=== PATIENT | male | born 1965 | race Caucasian/White ===

== ENCOUNTER → 2023-05-28 07:35 | Outpatient (CLI) | payer MEDICARE, SELFPAY ==
[2023-05-28 07:43] LABS: Microscopic, Urine URINE MICROSCOPIC (MICROSCOPIC)
[2023-05-28 07:56] LABS: Basophils # 0.1 K/mm3 (0-0.2); Basophils % 0.9 % (0.1-2.0); Eosinophils # 0.3 K/mm3 (0.0-0.4); Eosinophils % 3.2 % (0.1-12.0); Hematocrit 44.8 % (42.0-52.0); Lymphocytes % 33.1 % (10-50); Mean Corpuscular HGB Conc 33.5 g/dL (31.8-35.4); Mean Corpuscular Hemoglobin 32.1 pg (27.0-31.2); Mean Platelet Volume 10.2 fl (7.4-10.4); Monocytes # 0.6 K/mm3 (0.1-1.0); Neutrophils # 5.1 K/mm3 (1.8-7.8); Neutrophils % 55.8 % (37.0-80.0); Platelet Count 220 K/mm3 (142-424); Red Blood Count 4.66 M/mm3 (4.60-6.20); Red Cell Distribution Width 13.6 % (11.5-17.5); White Blood Count 9.1 K/mm3 (4.8-10.8)
[2023-05-28 07:57] LABS: Appearance,Urine CLEAR (Clear); Bilirubin,Urine Negative (Negative); Blood, Urine Negative (Negative); Color,Urine YELLOW (Yellow); Glucose,Urine (UA) Negative (Negative); Ketones,Urine Negative (Negative); Leukocyte Esterase,Urine Negative (Negative); Nitrate,Urine Negative (Negative); PH,Urine 6.5 (5.0-8.5); Protein,Urine Negative (Negative); Urobilinogen,Urine 0.2 EU/dl (0.2)
[2023-05-28 08:29] LABS: Squamous Epithelial Cell,Urine Occasional #/hpf (0-5); WBC,Urine Occasional #/hpf (0-3)
[2023-05-28 08:42] LABS: Chloride 104 mmol/L (98-107); Potassium 3.5 mmoL/L (3.5-5.1); Sodium 142 mmol/L (136-145)
[2023-05-28 08:44] LABS: Amylase 66 U/L (30-110)
[2023-05-28 08:45] LABS: Alanine Aminotransferase 22 U/L (12-78); Albumin Level 3.7 g/dl (3.5-5.0); Albumin/Globulin Ratio 1.8 (1.1-1.8); Alkaline Phosphatase 75 U/L (38-126); Anion Gap 10.5 mEq/L (5-15); Aspartate Amino Transferase 19 U/L (17-59); Bilirubin,Total 0.5 mg/dl (0.2-1.3); Blood Urea Nitrogen 25 mg/dl (9-20); Calcium 9.5 mg/dl (8.4-10.2); Carbon Dioxide 31 mmol/L (22.0-30.0); Estimated Glomerular Filt Rate 48 ml/min (>60); GFR (African American) 58 ML/MIN (>60); Globulin 2.1 g/dL (1.3-3.2); Glucose 95 mg/dl (74-100); HDL Cholesterol 50 mg/dl (40-60); Lipase 53 U/L (23-300); Total Protein,Serum 5.8 g/dl (6.3-8.2)
[2023-05-28 08:46] LABS: Cholesterol 152 mg/dl (140-200); Triglycerides 81 mg/dl (30-150); VLDL Cholesterol 16 mg/dL (0-40)
[2023-05-28 08:55] LABS: Creatinine,Urine Random 154 mg/dL (Not Estab.); Microalbumin/Creatinine Ratio 6.3
[2023-05-28 08:57] LABS: Direct LDL Cholesterol 82.13 mg/dL (100-129)
[2023-05-28 09:17] LABS: Thyroid Stimulating Hormone 1.09 uIU/mL (0.465-4.68)
[2023-05-28 12:26] LABS: Prostate Specific Ag Screen 0.7 ng/ml (0.0-4.0)
[2023-05-28 12:45] LABS: Vitamin B12 268 pg/mL (239-931)
[2023-05-29 10:12] LABS: Testosterone,Total 677 ng/dL (264-916)
== END ==
PROVIDERS: PCP Nurse Practitioner Family; Visit Provider Nurse Practitioner Family
DX: I10 Essential (primary) hypertension (principal); F10.10 Alcohol abuse, uncomplicated; Z12.5 Encounter for screening for malignant neoplasm of prostate; Z13.220 Encounter for screening for lipoid disorders; F19.11 Other psychoactive substance abuse, in remission; N45.1 Epididymitis; Z79.899 Other long term (current) drug therapy
CPT/HCPCS: 36415; 80053; 80061; 81001; 82043; 82150; 82570; 82607; 83690; 84155; 84403; 84439; 84443; 85025; 87086; G0103

== ENCOUNTER → 2023-05-31 07:45 | Outpatient (CLI) | payer MEDICARE, SELFPAY ==
--- NOTE | 2023-05-31 07:48 | CA_ITS ---
FINAL REPORT CLINICAL HISTORY: HTN,SMOKER COMPARISON: None FINDINGS: Aorta velocity: 87.5 cm/sec Right kidney: 10.2 cm. No evidence of hydronephrosis or mass. Right intrarenal RI: 0.8 Right renal artery velocity: 163 cm/sec. Right RAR (Renal artery-Aortic Ratio): 1.86 Left Kidney: 9.3 cm. No evidence of hydronephrosis or mass. Left intrarenal RI: 0.7 Left renal artery velocity: 159 cm/sec. Left RAR (Renal Artery-Aortic Ratio): 1.8 IMPRESSION: No evidence of significant renal artery stenosis. CT angiogram or postcontrast MR angiogram would be more sensitive for evaluation of possible renal artery stenosis. Reviewed, Interpreted and Dictated by Manuel Wilson MD Transcribed by Faye Vargas Authenticated and [facility]
--- NOTE | 2023-05-31 08:15 | US_ITS ---
FINAL REPORT TECHNIQUE: Ultrasound images of the kidneys and bladder were obtained. CLINICAL HISTORY: hypertension COMPARISON: None FINDINGS: The right kidney measures 9.8 cm in length. It is normal in echogenicity. There is no hydronephrosis. The left kidney measures 9.3 cm in length. It is normal in echogenicity. There is no hydronephrosis. There is a small 7 mm cyst projecting from the left mid kidney. IMPRESSION: No hydronephrosis. Reviewed, Interpreted and Dictated by Manuel Wilson MD Transcribed by Faye Vargas Authenticated and [facility]
== END ==
PROVIDERS: PCP Nurse Practitioner Family; Visit Provider Nurse Practitioner Family
DX: I10 Essential (primary) hypertension (principal)
CPT/HCPCS: 76770; 93976

== ENCOUNTER 2024-02-24 11:29 | Outpatient (CLI) | payer MEDICARE, SELFPAY ==
[2024-02-24 11:10] LABS: Microscopic, Urine URINE MICROSCOPIC (MICROSCOPIC)
[2024-02-24 11:22] LABS: Basophils # 0.1 K/mm3 (0-0.2); Basophils % 1.3 % (0.1-2.0); Eosinophils # 0.1 K/mm3 (0.0-0.4); Eosinophils % 1.7 % (0.1-12.0); Hematocrit 48.8 % (42.0-52.0); Hemoglobin 16.1 g/dL (14.1-18.0); Lymphocytes # 2.1 K/mm3 (0.7-4.5); Lymphocytes % 28.6 % (10-50); Mean Corpuscular Hemoglobin 34.5 pg (27.0-31.2); Mean Corpuscular Volume 104.5 fl (80-94); Monocytes # 0.4 K/mm3 (0.1-1.0); Monocytes % 5.7 % (1.7-9.3); Neutrophils # 4.6 K/mm3 (1.8-7.8); Neutrophils % 62.6 % (37.0-80.0); Platelet Count 179 K/mm3 (142-424); Red Blood Count 4.67 M/mm3 (4.60-6.20); Red Cell Distribution Width 14.5 % (11.5-17.5); White Blood Count 7.3 K/mm3 (4.8-10.8)
[2024-02-24 11:35] LABS: Appearance,Urine CLEAR (Clear); Bilirubin,Urine Negative (Negative); Blood, Urine Negative (Negative); Color,Urine YELLOW (Yellow); Glucose,Urine (UA) Negative (Negative); Ketones,Urine Negative (Negative); Leukocyte Esterase,Urine Negative (Negative); Nitrate,Urine Negative (Negative); Protein,Urine Negative (Negative); Urobilinogen,Urine 0.2 EU/dl (0.2)
[2024-02-24 11:46] LABS: Alanine Aminotransferase 20 U/L (12-78); Albumin Level 4.7 g/dl (3.5-5.0); Albumin/Globulin Ratio 1.9 (1.1-1.8); Alkaline Phosphatase 91 U/L (38-126); Anion Gap 13.9 mEq/L (5-15); Aspartate Amino Transferase 27 U/L (17-59); Bilirubin,Total 0.7 mg/dl (0.2-1.3); Blood Urea Nitrogen 15 mg/dl (9-20); Carbon Dioxide 30 mmol/L (22.0-30.0); Chloride 103 mmol/L (98-107); Chol/HDL Ratio 3.9 (1-3.5); Cholesterol 220 mg/dl (140-200); Estimated Glomerular Filt Rate 48 ml/min (>60); GFR (African American) 58 ML/MIN (>60); Globulin 2.5 g/dL (1.3-3.2); Glucose 102 mg/dl (74-100); HDL Cholesterol 56 mg/dl (40-60); Potassium 3.9 mmoL/L (3.5-5.1); Sodium 143 mmol/L (136-145); Total Protein,Serum 7.2 g/dl (6.3-8.2); Triglycerides 114 mg/dl (30-150); VLDL Cholesterol 23 mg/dL (0-40)
[2024-02-24 11:57] LABS: Direct LDL Cholesterol 134.64 mg/dL (100-129)
[2024-02-24 12:02] LABS: 25-OH Vitamin D, Total 29.5 ng/mL (30-100)
[2024-02-24 12:03] LABS: Free T4 (Free Thyroxine) 0.95 ng/dl (0.78-2.19)
[2024-02-24 12:05] LABS: Hemoglobin A1C 5.1 % (4.0-6.0)
[2024-02-24 12:17] LABS: Thyroid Stimulating Hormone 0.84 uIU/mL (0.465-4.68)
[2024-02-24 12:36] LABS: Vitamin B12 327 pg/mL (239-931)
[2024-02-24 13:16] LABS: Bacteria,Urine Trace /lpf; RBC,Urine Occasional #/hpf (0-3); Squamous Epithelial Cell,Urine Occasional #/hpf (0-5); WBC,Urine Occasional #/hpf (0-3)
[2024-02-29 14:15] LABS: Vitamin B6 3.1 ug/L (3.4-65.2)
== END 2024-02-24 23:59 | disposition home or self-care (01) ==
LOC: LAB.DROPOF 11:29
PROVIDERS: PCP Nurse Practitioner Family; Visit Provider Nurse Practitioner Family
DX: E55.9 Vitamin D deficiency, unspecified (principal); R53.83 Other fatigue; R73.09 Other abnormal glucose; I10 Essential (primary) hypertension; R39.9 Unspecified symptoms and signs involving the genitourinary system; F10.10 Alcohol abuse, uncomplicated; E78.00 Pure hypercholesterolemia, unspecified
CPT/HCPCS: 80053; 80061; 81001; 82306; 82607; 83036; 84207; 84425; 84439; 84443; 85025; 87086

== ENCOUNTER 2025-02-22 08:52 | Outpatient (CLI) | payer MEDICARE, SELFPAY ==
[2025-02-22 14:08] LABS: Microscopic, Urine URINE MICROSCOPIC (MICROSCOPIC)
[2025-02-22 14:47] LABS: Basophils # 0.1 K/mm3 (0-0.2); Basophils % 0.8 % (0.1-2.0); Eosinophils # 0.2 Kmm3 (0.0-0.4); Eosinophils % 2.9 % (0.1-12.0); Hematocrit 51.1 % (42.0-52.0); Immature Granulocytes # 0.01 10^3uL; Immature Granulocytes % 0.2 %; Lymphocytes # 2.1 K/mm3 (0.7-4.5); Lymphocytes % 31.5 % (10-50); Mean Corpuscular HGB Conc 35.2 g/dL (31.8-35.4); Mean Corpuscular Volume 96.6 fl (80-94); Mean Platelet Volume 13.3 fl (7.4-10.4); Monocytes # 0.6 K/mm3 (0.1-1.0); Monocytes % 8.4 % (1.7-9.3); Neutrophils # 3.7 K/mm3 (1.8-7.8); Neutrophils % 56.2 % (37.0-80.0); Nucleated Red Blood Cells # 0 10^3/uL; Nucleated Red Blood Cells % 0 %; Platelet Count 150 K/mm3 (142-424); Red Blood Count 5.29 M/mm3 (4.60-6.20); Red Cell Distribution Width 12.6 % (11.5-17.5); Red Cell Distribution Width-SD 45.3 fL; White Blood Count 6.5 K/mm3 (4.8-10.8)
[2025-02-22 15:02] LABS: Appearance,Urine CLEAR (Clear); Bilirubin,Urine Negative (Negative); Blood, Urine Negative (Negative); Color,Urine YELLOW (Yellow); Glucose,Urine (UA) Negative (Negative); Ketones,Urine Negative (Negative); Leukocyte Esterase,Urine Negative (Negative); Nitrate,Urine Negative (Negative); PH,Urine 6.5 (5.0-8.5); Protein,Urine Negative (Negative); Urobilinogen,Urine 0.2 EU/dl (0.2)
[2025-02-22 15:20] LABS: Bacteria,Urine Trace /lpf; Squamous Epithelial Cell,Urine Occasional #/hpf (0-5); WBC,Urine Occasional #/hpf (0-3)
[2025-02-22 15:22] LABS: Alanine Aminotransferase 18 U/L (12-78); Albumin Level 4.9 g/dl (3.5-5.0); Albumin/Globulin Ratio 2.3 (1.1-1.8); Alkaline Phosphatase 84 U/L (38-126); Anion Gap 12.7 mEq/L (5-15); Aspartate Amino Transferase 21 U/L (17-59); Bilirubin,Total 0.7 mg/dl (0.2-1.3); Blood Urea Nitrogen 26 mg/dl (9-20); Calcium 9.5 mg/dl (8.4-10.2); Carbon Dioxide 29 mmol/L (22.0-30.0); Chloride 101 mmol/L (98-107); Chol/HDL Ratio 5.7 (1-3.5); Cholesterol 183 mg/dl (140-200); Estimated Glomerular Filt Rate 41 ml/min (>60); GFR (African American) 50 ML/MIN (>60); Globulin 2.1 g/dL (1.3-3.2); Glucose 73 mg/dl (74-100); HDL Cholesterol 32 mg/dl (40-60); Potassium 4.7 mmoL/L (3.5-5.1); Sodium 138 mmol/L (136-145); Triglycerides 141 mg/dl (30-150); VLDL Cholesterol 28 mg/dL (0-40)
[2025-02-22 15:34] LABS: Direct LDL Cholesterol 125.06 mg/dL (100-129)
[2025-02-22 15:42] LABS: 25-OH Vitamin D, Total 35.8 ng/mL (30-100)
[2025-02-22 15:53] LABS: Prostate Specific Ag Screen 0.7 ng/ml (0.0-4.0); Thyroid Stimulating Hormone 1.04 uIU/mL (0.465-4.68)
[2025-02-22 16:04] LABS: HIV Combo NEGATIVE (Negative)
[2025-02-22 16:12] LABS: Vitamin B12 499 pg/mL (239-931)
[2025-02-22 16:13] LABS: Hepatitis C Ab Qual. W/ RFX NEGATIVE (Negative)
== END 2025-02-22 23:59 | disposition home or self-care (01) ==
LOC: LAB.DROPOF 02-23 10:59
PROVIDERS: PCP Nurse Practitioner Family; Visit Provider Nurse Practitioner Family
DX: Z12.5 Encounter for screening for malignant neoplasm of prostate (principal); Z11.4 Encounter for screening for human immunodeficiency virus [HIV]; Z11.59 Encounter for screening for other viral diseases; Z13.220 Encounter for screening for lipoid disorders; E11.9 Type 2 diabetes mellitus without complications; I10 Essential (primary) hypertension; R53.83 Other fatigue; R41.3 Other amnesia; G47.33 Obstructive sleep apnea (adult) (pediatric); F10.10 Alcohol abuse, uncomplicated; Z79.899 Other long term (current) drug therapy; Z72.0 Tobacco use
CPT/HCPCS: 80053; 80061; 81001; 82306; 82607; 83036; 84156; 84439; 84443; 85025; 86803; 87086; 87389; G0103

== ENCOUNTER 2025-03-21 08:44 | Outpatient (RCR) | payer MEDICARE, SELFPAY ==
--- NOTE | 2025-03-21 09:59 | HMH.PTOPEV ---
PT Outpatient Evaluation Rehab PT Outpatient Evaluation Start: 03/21/25 08:50 Freq: Status: Active Protocol: Document 03/21/25 08:50 STEFANO (Rec: 03/21/25 09:58 JORDONMISHEL [id number]) E-signed By Shon Graf, PT Outpatient Therapy Subjective History Subjective History Pt is a 59 yom who is referred to [facility] outpatient PT with complaints of chronic low back pain with radiating symptoms down the L LE. Pt reports that he has dealt with episodic low back pain for over a decade. He reports that in the past his back will go out for a week or so at a time. Pt reports that he has had 4 prior back surgeries over 10 years ago, with the most recent one being a lumbar fusion. Pt reports that in the past year, his episodes have become more frequent and are constantly causing numbness and tingling into his L leg down to his ankle. Reports that his symptoms are worsened when in one position for longer periods. Reports that when his symptoms are flared up, he is unable to stand up straight. PMH: Htn, Alcoholism Occupation: Part-time [employer] store Chief Complaint Pain,Paresthesia,Weakness Symptom Type Ache,Numbness,Tingling Symptoms Relieved By Ice,OTC Meds Symptoms Aggravated Prone,Sitting,Standing,Physical Activity,Twisting, By Walking Prior Functional None Limitations Current Functional Lifting,Housework,Dressing,Standing,Sitting,Squatting, Limitations Recreation Activity,Walking,Stairs Symptom Description Constant but Variable,Activity Dependent Level of pain today 4 (0-10) Pain scale - at its 2 best (0-10) Pain scale - at its 9 worst (0-10) Lumbopelvic Eval Posture Thoracic Spine Neutral Posture Standing Position Lumbar Spine Posture Flexed Standing Position Assistive device Assistive Devices None / NA Palapation tenderness bilateral lumbar spinal Yes: L3-L4 TTP 3/4 tenderness paraspinal Yes: L3-L4 TTP 3/4 tenderness Accessory Movement L-spine Vertebrae Central P/A Jamieson,Left P/A [place]on Accessory Movements that Elicit Symptoms L3 left L4 left Range of Motion Lumbar Spine Active 75% Flexion Range of Motion (degrees) Lumbar Spine Active 0 Extension Range of Motion (degrees) Left Lumbar Spine 25% Lateral Flexion Active Range of Motion (degrees) Right Lumbar Spine 25% Lateral Flexion Active Range of Motion (degrees) Lumbar Spine ROM Soft Tissue Tightness,Pain Limitations Manual Muscle Test Left Knee Extension 3+ Fair+ Strength Grade Knee Flexion 4+ Good+ Strength Grade Hip Flexion Strength 4 Good Grade Hip Abduction 2 Poor Strength Grade Hip Adduction 4+ Good+ Strength Grade Hip Extension 4 Good Strength Grade Extensor Hallucis 5 Normal Longus Strength Grade Ankle Dorsiflexion 5 Normal Strength Grade DTR Rt Patellar 2+ Lt Patellar 2+ Rt Gastroc/Soleus 2+ Lt Gastroc/Soleus 2+ Altered Sensation Left LE Dermatome Level L3,L4 Comment Slight hyposensation reported along L3-L4 Dermatomal pattern Special Tests Lumbar Spine Screen Positive Anterior/Posterior Negative Left Rib Compression Test Forward Bending Test Positive Left - Standing Sciatic Nerve Positive Left Tension Test Crossed Straight Leg Positive Left Raise Test Hip Breanna's Test Negative Left Sacroiliac Joint Negative Left Compression Test Sacroiliac Joint Negative Left Distraction Test Lumbar Spine [place] Negative Left Test Catracho's Sign Test Negative Left Lumbar [place] Negative Distraction Test/ Manual Traction Oswestry Index Section 1 Pain Intensity The pain comes and goes and is moderate Section 2 Personal Care ( change my way of washing or dressing in order to avoid Washing,Dresing) pain Section 3 Lifting Pain prevents me from lifting weights off the floor Section 4 Walking I cannot walk more than 1/4 mile without increasing pain Section 5 Sitting Pain prevents me from sitting for more than one hour Section 6 Standing I cannot stand more than 1 hour without increasing pain Section 7 Sleeping I get no pain in bed Section 8 Social Life My social life is normal but increases the degree of pain Section 9 Traveling I get extra pain while traveling which compels me to seek alternate fo Section 10 Changing Degreee of My pain is gradually getting worse Pain Score and Risk Level Oswestry Sc 20 Oswestry Risk Level Moderate Disability Miscellaneous Dx PT Eval Objective Objective Slump Test: + Outpatient Therapy Assessment Impairments Problems/ Palpation Tenderness,Impaired Range of Motion,Impaired Impairmments Strength,Impaired Gait Pattern,Impaired Walking, Impaired Standing,Impaired Sitting,Impaired Household Care,Impaired Bending,Impaired Recreational Activities, Subjective C/O Pain Prognosis Rehab Potential Good Clinical Impression Consistent with Yes Diagnosis Consistent with Lumbar Radiculopathy (M54.10) Additional details: Suggestive of L3 Radiculopathy Short Term Goals Number of Weeks 4 Decreased Palpation Yes: 1-2/4 to TTP assessment above Tenderness Increase Range of Yes: Improve lumbar extension to 25-50% WNL Motion Increase Strength Yes: 3+/5 to LLE globally Increase Ability to Yes: 30 minutes without increasing symptoms Stand Increase Ability to Yes: 30 minutes without increasing symptoms Sit Improve Oswestry Yes: <15 Score Decrease Subjective Yes: 5/10 with above assessment C/O Pain Patient to be Ind w/ Yes HEP Card Checker Goals Number of Weeks 8 Decreased Palpation Yes: 0/4 to TTP assessment above Tenderness Increase Range of Yes: 50-75% WNL Lumbar Extension Motion Increase Strength Yes: 4+/5 to LLE globally Increase Ability to Yes: 1 hour without increasing symptoms Stand Increase Ability to Yes: 1 hour without increasing symptoms Sit Improve Oswestry Yes: <10 Score Decrease Subjective Yes: 2-3/10 with above assessment C/O Pain Patient to be Ind w/ Yes Advanced HEP Outpatient Therapy Plan of Care Treatment Plan May Include Therapeutic Exercise Yes Including Home Exercise Program Manual Therapy Yes Techniques Neuromuscular Re- Yes education Therapeutic Yes Activities to Return to Previous Functional/Work Level Gait Training Yes ADL/Self Care Yes Education Dry Needling Yes Thermal Modalities Yes Electrical Yes Stimulation Iontophoresis Yes Manual Lymphatic Yes Drainage Eval/Re-Eval Yes Frequency Times per week 2 Duration Number of Weeks 8 Addendums This patient is a No candidate for social or vocational rehab ? Patient/Guardian Yes verbally acknowledges understanding of treatment program and consents to further treatment? Patient/Guardian Yes verbally acknowledges understanding of diagnosis, prognosis and goals for treatment? Eval Complexity PT Charges 50112 - Moderate Complexity Shoulder/Elbow Eval Shoulder Objective Measurements Elbow Objective Measurements PHYSICIAN CERTIFICATION: I certify the specified therapy services for Richy Negrete are required, authorized, and reviewed every 30 days.
== END 2025-03-21 23:59 | disposition home or self-care (01) ==
LOC: PT 08:44
PROVIDERS: Visit Provider Nurse Practitioner Family
DX: M54.10 Radiculopathy, site unspecified (principal); M51.369 Other intervertebral disc degeneration, lumbar region without mention of lumbar back pain or lower extremity pain
CPT/HCPCS: 97162